=== PATIENT | female | born 1955 | race Caucasian/White ===

== ENCOUNTER 2018-04-29 06:10 | Day surgery (SDC) | payer OTHER ==
[2018-04-26 14:17] LABS: Urine Appearance CLEAR; Urine Bilirubin NEGATIVE (NEG); Urine Blood NEGATIVE (NEG); Urine Color YELLOW; Urine Glucose NEGATIVE (NEG); Urine Protein NEGATIVE (NEG); Urine Specific Gravity 1.015 (1.005-1.030); Urine Urobilinogen 0.2 mg/dL (0.2-1.0); Urine pH 5.5 (5.0-7.0)
[2018-04-26 14:19] LABS: Absolute Monocytes 0.6 K/uL (0.1-1.3); Absolute Neutrophil 3.1 K/uL (1.8-8.0); Basophils % 0.9 % (0-1.3); Eosinophils % 1.3 % (0-4.4); Hematocrit 39.2 % (36.0-45.0); Lymphocytes % 33.9 % (15.3-44.8); MCH 32.6 pg (27.0-35.0); MCV 93.7 fL (80-100); MPV 7.6 fL (7.6-11.3); Monocytes % 9.9 % (3.3-12.3); RBC Red Blood Cell Count 4.18 M/uL (3.86-4.86)
[2018-04-26 14:25] LABS: Protime INR 0.93
[2018-04-26 14:26] LABS: Urine Microscopic Reflex ORDER UMIC
[2018-04-26 15:00] LABS: Urine Bacteria <20 /HPF (<20); Urine RBC <5 /HPF (NONE SEEN)
[2018-04-26 15:01] LABS: Urine Culture Reflex Order REFLEXED
[2018-04-29] MEDS ORDERED: Ringers Lactate 1,000 ML IV ONE ×2 (06:30→09:00)
[2018-04-29] MEDS ORDERED: CEFAZOLIN/SWI 1gm 0 GM/0 ML SYR ONE (06:30)
[2018-04-29] MEDS ORDERED: PROPOFOL 200 MG/20 ML VIAL IV ONE (07:10)
[2018-04-29] MEDS ORDERED: MIDAZOLAM HCL 2 MG/2 ML INJ ONE (07:10)
[2018-04-29] MEDS ORDERED: ONDANSETRON HCL 40 MG/20 ML VIAL ONE (07:10)
[2018-04-29] MEDS ORDERED: CEFAZOLIN/SWI 1gm 1 GM/10 ML SYR ONE (07:10)
[2018-04-29] MEDS ORDERED: FENTANYL CITR 250 MCG/5 ML ONE ×2 (07:10→09:06)
[2018-04-29] MEDS ORDERED: VASOPRESSIN 20 UNIT/ML VIAL ONE (07:10)
[2018-04-29] MEDS ORDERED: ROCURONIUM 50 MG/5 ML VIAL IV ONE (07:10)
[2018-04-29] MEDS ORDERED: NA CHLORIDE 0.9% 100 ML IV ONE (07:10)
[2018-04-29] MEDS ORDERED: LIDOCAINE 1% MPF 2 ML AMPULE ONE (07:10)
[2018-04-29] MEDS ORDERED: GLYCOPYRROLATE 0.2 MG/ML SYR ONE ×2 (08:09→08:12)
[2018-04-29] MEDS: MEPERIDINE HCL 50 MG/ML AMP ONE ×3 (10:50→11:00)
[2018-04-29 10:58] VITALS: O2SAT 98
[2018-04-29] MEDS ORDERED: MORPHINE 4 MG/ML SYR ONE (11:23)
[2018-04-29] MEDS ORDERED: DIPHENHYDRAMINE 50 MG/ML VIAL ONE (11:25)
[2018-04-29] MEDS: Ringers Lactate 1,000 ML IV SCH ×2 (12:00→20:16)
[2018-04-29] MEDS ORDERED: MEPERIDINE HCL 50 MG/ML AMP IM PRN (12:20)
[2018-04-29] MEDS ORDERED: PROMETHAZINE 25 MG TABLET PO PRN (12:21)
[2018-04-29] MEDS ORDERED: PROMETHAZINE 25 MG/ML VIAL IV PRN (12:23)
[2018-04-29 13:01] VITALS: BMI 32.2
--- NOTE | 2018-04-29 13:14 | OP ---
Date of Procedure: 04/29/2018 Surgeon: Suzan Montalvo MD Impregnator And Drier: Padmini Sullivan. Preoperative Diagnosis: Posterior wall defect, stage II (rectocele, perineocele, possible apical def ect). Postoperative Diagnosis: Stage II posterior wall defect, and posterior enterocele perineal defect an d perineocele. Procedures Performed: Site-specific posterior wall repair, posterior enterocele repair, perineocele repair with perineorrhaphy. Anesthesia: General endotracheal. Estimated Blood Loss: Less than 100. Specimens: No specimens. Complications: No complications. Drains: Schaffer catheter and vaginal packing were left in place. Indications: The patient is a 63-year-old with symptomatic posterior wall defect with bulge symptoms as well as pressure. After counseling her appropriately, she was given options of observation, poss ible pessary for which fitting would be difficult due to the distal posterior wall defect and surgica l repair. After understanding the benefits, risks, and alternatives, she wanted to proceed with surg ical repair, so she was brought to the OR. Ancef 1 g was given. She was taken back to the OR. General anesthesia was given and placed in a bhupendra alison lithotomy position using Tonny stirrups. After positioning was properly checked, the pelvic exam was performed under anesthesia. An Allis clamp was used to place traction on the vaginal apex. Her POP-Q was as follows -3, -3, -8. With the Allis clamp on tension, the apex came down to -6, genital hiatus 5 cm, perineal body thin, and vaginal length was 9 cm, and then the posterior POP-Q -1 0+ 1 w ith tension and nonapplicable. There was no apical defect on exam. The defect was in the lower 2/3 of the rectovaginal septum and after the procedure, this was found to be the detachment of the rectov aginal septum from the left lateral wall. There was a small posterior enterocele on the top towards the left, which was repaired. Description Of Procedure: After the lower abdomen, vulva, vagina, and perineum were prepped and drap ed in a sterile fashion, Schaffer was placed to drain the bladder, a Deana placed in the superior aspec t to expose the apex. Three Allis clamps were placed in the midline starting at the apex down all e way to the distal part of the posterior wall. Two Allis clamps were placed on the inside of the ve stibule. The hymen was detached and this area was identified as well. With the rectal finger, the d efect was found to be in the middle to distal to third of the posterior wall. Then, once the defect was identified, dilute vasopressin was injected on the perineum as well as in t he posterior midline wall. A triangular skin incision was made on the perineum with the help of a 15 -blade. Then, the lateral aspects of the perineal body were dissected free from the epithelium and s ub-epithelium and posterior wall was entered. The posterior compartment was entered with the help of Metzenbaum scissors through this incision. With push-spread technique, windows were made. Then thi s incision was carried all the way to the top of the posterior wall 2 cm short of the apex. Then, th e rectovaginal septum was dissected away from the vaginal to the epithelium on both sides. Here, the defect was identified to be the detachment from the left side. The areas of the left attached wall were also attempted to be dissected free, although it was difficult. A tiny remnant was identified. Then once this was all raised satisfactorily and I went all the way to the apex with the suction. T here was a small posterior enterocele coming through the top left so this had to be reduced after sep arating from the rectovaginal septum. Once this was reduced with the help of 3-0 Vicryl sutures at t he top bringing the septum back and attaching it to the lateral wall and the left apex. Then I had t o repair the posterior wall. The wall was sutured. The rectovaginal septum defect was sutured toget her with the help of a running 2-0 Vicryl suture x2. Once this was done all the way down, the distal -most part of the rectovaginal septum where it was attached to the perineum was also identified and t hey were brought together with the help of the 2-0 Vicryl sutures. Then, the vaginal mucosa was trim med, taking out the scar from her episiotomy repair. Less than a half centimeter on each side was tr immed, so there was no vaginal shortening. 2-0 Vicryl was used to close the perineocele. With a fin nahum in the rectum, the other hand was used to place [id number] sutures in a buried [id number]-pr-kih ht fashion. These were held with hemostats x3 on the perineum to bring the defect together. Once th is was nicely brought together, then the glove was changed and the sutures were tied. The layer of t he port was done on top, bringing the superficial part of the transverse perineum together with inter rupted 2-0 Vicryl sutures tied in the U fashion x2. As the perineal body was thick and genital hiatu s was only or 3-4 cm, then the vaginal epithelium was closed with 2-0 Vicryl in a continuous running locked fashion to the level of the hymen and this was closed with the help of 3-0 Vicryl sutures in t he subcutaneous and subcuticular fashion. Rectal exam was performed. No evidence of any injury to t he rectum. The Schaffer was left in place. Vaginal packing was done. The patient was recovered from a nesthesia and taken to PACU in stable condition. EBL was minimal. Instrument, needle, and sponge co unts were correct at the end of the case. The patient tolerated procedure well. ANTONI/MUKESH Voice ID: [id number] Report ID: [id number]
[2018-04-29] MEDS: ACETAMINOPHEN 325 MG TABLET PO PRN ×2 (14:51→20:54)
[2018-04-30] MEDS: ACETAMINOPHEN 325 MG TABLET PO PRN (02:00)
[2018-04-30] MEDS: Ringers Lactate 1,000 ML IV SCH (03:43)
[2018-04-30 05:15] LABS: Absolute Lymphocytes (CBC) 2.1 K/uL (0.7-4.9); Absolute Monocytes 0.8 K/uL (0.1-1.3); Absolute Neutrophil 4.5 K/uL (1.8-8.0); Basophils % 0.7 % (0-1.3); Hematocrit 35.5 % (36.0-45.0); Lymphocytes % 27.2 % (15.3-44.8); MCH 32.5 pg (27.0-35.0); MCV 91.8 fL (80-100); MPV 7.3 fL (7.6-11.3); Monocytes % 10.3 % (3.3-12.3); RBC Red Blood Cell Count 3.86 M/uL (3.86-4.86)
[2018-04-30 08:33] VITALS: BP 126/76; TEMP 97.8
== END 2018-04-30 08:45 | disposition home or self-care (01) ==
LOC: OR 06:10 → 2ND-WC 11:07 → OR 04-30 08:45
PROVIDERS: ATTEND Obstetrics & Gynecology
PROC: 0WQNXZZ Repair Female Perineum, External Approach (ICD-10-PCS; 2018-04-29)
PROC: 0UQF0ZZ Repair Cul-de-sac, Open Approach (ICD-10-PCS; 2018-04-29)
PROC: 0JQC0ZZ Repair Pelvic Region Subcutaneous Tissue and Fascia, Open Approach (ICD-10-PCS; principal; 2018-04-29 07:30)
DX: N99.3 Prolapse of vaginal vault after hysterectomy (principal); N81.81 Perineocele; I10 Essential (primary) hypertension; G47.33 Obstructive sleep apnea (adult) (pediatric); J45.909 Unspecified asthma, uncomplicated; K21.9 Gastro-esophageal reflux disease without esophagitis; F41.9 Anxiety disorder, unspecified; Z88.0 Allergy status to penicillin; Z88.2 Allergy status to sulfonamides; Z82.49 Family history of ischemic heart disease and other diseases of the circulatory system; Z82.3 Family history of stroke
CPT/HCPCS: 36415; 81003; 81015; 85025; 85610; 85730; 86850; 86900; 86901; 87077; 87086; 87088; 87186; J0690; J2001; J2175; J2250; J2405

== ENCOUNTER 2019-04-01 14:51 | Emergency (ER) | payer OTHER ==
[2019-04-01] MEDS ORDERED: LIDOCAINE 1% MPF 5 ML VIAL ONE (16:10)
[2019-04-01] MEDS ORDERED: BUPIVACAINE 0.5% PF 10 ML VIAL ONE (16:10)
--- NOTE | 2019-04-01 16:31 | ER ---
Nurse's Notes [facility] Name: Herlinda Cobos Age: 64 yrs Sex: Female : 1955 Arrival Date: 04/01/2019 Time: 14:55 Bed 24 Private MD: Diagnosis: Laceration without foreign body of thumb without damage to nail-left Presentation: 04/01 15:24 Presenting complaint: Patient states: She was cutting tomatoes with a Mandolin and she aj1 accidentally cut her thumb. Laceration noted to thumb, that is not currently bleeding. Transition of care: patient was not received from another setting of care. Onset of symptoms was April 01, 2019. Risk Assessment: Do you want to hurt yourself or someone else? Patient reports no desire to harm self or others. Initial Sepsis Screen: Does the patient meet any 2 criteria? No. Patient's initial sepsis screen is negative. Does the patient have a suspected source of infection? No. Patient's initial sepsis screen is negative. Care prior to arrival: None. 15:24 Method Of Arrival: Ambulatory [facility] 15:24 Acuity: JORGE 4 aj1 Triage Assessment: 15:27 General: Appears in no apparent distress. comfortable, Behavior is calm, cooperative, aj1 appropriate for age. Pain: Denies pain. Neuro: Level of Consciousness is awake, alert, obeys commands. Cardiovascular: Patient's skin is warm and dry. Musculoskeletal: Circulation, motion, and sensation intact. Injury Description: Laceration. Historical: - Allergies: 15:27 PENICILLINS; aj1 15:27 lactose (bulk); aj1 - Home Meds: 15:27 Prozac Oral [Active]; carvedilol oral oral [Active]; amlodipine oral [Active]; aj1 atorvastatin oral oral [Active]; topiramate oral oral [Active]; Advair Diskus Inhl [Active]; - PMHx: 15:27 Asthma; Hyperlipidemia; Hypertension; aj1 - PSHx: 15:27 Tonsillectomy; Hysterectomy; tummy tuck; aj1 - Immunization history:: Flu vaccine is up to date. - Social history:: Smoking status: Patient/guardian denies using tobacco. - Ebola Screening: : Patient denies travel to an Ebola-affected area in the 21 days before illness onset. Screenin:07 Abuse screen: Denies threats or abuse. Denies injuries from another. Nutritional mg2 screening: No deficits noted. Tuberculosis screening: No symptoms or risk factors identified. Fall Risk None identified. Assessment: 16:06 General: Appears in no apparent distress. comfortable, Behavior is calm, cooperative. mg2 Pain: Complains of pain in left thumb Pain does not radiate. Neuro: Level of Consciousness is awake, alert, obeys commands, Oriented to person, place, time, situation. Cardiovascular: Capillary refill < 3 seconds Patient's skin is warm and dry. Respiratory: Airway is patent Respiratory effort is even, unlabored, Respiratory pattern is regular, symmetrical. GI: No signs and/or symptoms were reported involving the gastrointestinal system. : No signs and/or symptoms were reported regarding the genitourinary system. EENT: No signs and/or symptoms were reported regarding the EENT system. Derm: Wound noted left thumb. Injury Description: Laceration sustained to left thumb is clean, 0.5 to 2.5 cm long, not bleeding, was sustained 2-4 hours ago. no active bleeding noted at this time. Vital Signs: 15:27 BP 126 / 79; Pulse 77; Resp 18; Temp 98.6; Pulse Ox 99% on R/A; Weight 84.37 kg (R); aj1 Height 5 ft. 4 in. (162.56 cm) (R); 16:55 BP 120 / 78; Pulse 80; Resp 18; Temp 98; Pulse Ox 100% on R/A; Pain 0/10; mg2 15:27 Body Mass Index 31.93 (84.37 kg, 162.56 cm) aj1 ED Course: 14:55 Patient arrived in ED. rg4 15:18 Nolan Donovan, RN is Primary Nurse. mg2 15:25 Triage completed. aj1 15:27 Zheng Rowell PA is PHCP. cp 15:27 Andrea Jean MD is Attending Physician. cp 15:27 Arm band placed on Patient placed in an exam room. aj1 16:07 Patient has correct armband on for positive identification. Door closed. mg2 16:53 Assist provider with laceration repair on left thumb that was 2.5 cm. or less using 3 mg2 stitches made under local anesthesia. Set up tray. Performed by Zheng GARRIDO Dressed with 4X4s, Neosporin, Patient tolerated well. 16:54 Patient did not have IV access during this emergency room visit. mg2 Administered Medications: 16:03 Drug: Marcaine (0.5 %) 5 ml {Note: applied by the provider.} Volume: 10 ml; Route: mg2 Infiltration; 16:56 Follow up: Response: No adverse reaction; Marked relief of symptoms mg2 16:05 Drug: Lidocaine (1 %) 5 mg {Note: given by the provider.} Route: Infiltration; mg2 16:56 Follow up: Response: No adverse reaction; Marked relief of symptoms mg2 Outcome: 16:30 Discharge ordered by . sabrina 16:56 Discharged to home ambulatory, with family. mg2 16:56 Condition: good 16:56 Discharge instructions given to patient, family, Instructed on discharge instructions, follow up and referral plans. wound care, Demonstrated understanding of instructions, follow-up care, wound care. 16:57 Patient left the ED. mg2 Signatures: Stephanie Lewis RN RN aj1 Zheng Rowell PA PA cp Garcia, Rubi rg4 Nolan Donovan RN RN mg2 Corrections: (The following items were deleted from the chart) 16:54 16:06 Pain: Complains of pain in right thumb Pain does not radiate. mg2 mg2 16:54 16:06 Derm: Wound noted right thumb mg2 mg2 16:54 16:06 Injury Description: Laceration sustained to right thumb is clean, 0.5 to 2.5 cm mg2 long, not bleeding, was sustained 2-4 hours ago. no active bleeding noted at this time. mg2 16:55 16:53 Assist provider with laceration repair mg2 mg2
--- NOTE | 2019-04-01 16:31 | EDPHYS ---
Physician Documentation [facility] Name: Herlinda Cobos Age: 64 yrs Sex: Female : 1955 Arrival Date: 04/01/2019 Time: 14:55 Bed 24 Private MD: ED Physician Andrea Jean HPI: 04/01 15:45 This 64 yrs old Female presents to ER via Ambulatory with complaints of cp Finger Injury. 15:45 The patient or guardian reports a laceration, clean. The complaints affect the distal cp phalanx of left thumb. 15:45 Context: The problem was sustained at home, resulted from using Mandolin while cooking. cp Onset: The symptoms/episode began/occurred just prior to arrival. Associated signs and symptoms: Pertinent negatives: cyanosis distally, decreased sensation distally. Historical: - Allergies: 15:27 PENICILLINS; aj1 15:27 lactose (bulk); aj1 - Home Meds: 15:27 Prozac Oral [Active]; carvedilol oral oral [Active]; amlodipine oral [Active]; aj1 atorvastatin oral oral [Active]; topiramate oral oral [Active]; Advair Diskus Inhl [Active]; - PMHx: 15:27 Asthma; Hyperlipidemia; Hypertension; aj1 - PSHx: 15:27 Tonsillectomy; Hysterectomy; tummy tuck; aj1 - Immunization history:: Flu vaccine is up to date. - Social history:: Smoking status: Patient/guardian denies using tobacco. - Ebola Screening: : Patient denies travel to an Ebola-affected area in the 21 days before illness onset. ROS: 15:50 Skin: Positive for laceration(s), of the distal phalanx of left thumb. cp Exam: 16:00 Constitutional: The patient appears in no acute distress, alert, awake, well developed, cp well nourished. 16:00 Head/Face: Normocephalic, atraumatic. cp 16:00 Eyes: Periorbital structures: appear normal, Conjunctiva: normal, no exudate, no injection, Lids and lashes: appear normal, bilaterally. 16:00 ENT: External ear(s): are unremarkable, Nose: is normal, Mouth: is normal. 16:00 Chest/axilla: Inspection: normal. 16:00 Cardiovascular: Rate: normal. 16:00 Respiratory: the patient does not display signs of respiratory distress, Respirations: normal. 16:00 Musculoskeletal/extremity: Sensation intact. Tendon exam: specific tendon testing normal through active and passive range of motion 16:00 Skin: injury, laceration(s), the wound is approximately 2 cm(s), of the distal phalanx left thumb, that can be described as clean, linear, with mild bleeding. Vital Signs: 15:27 BP 126 / 79; Pulse 77; Resp 18; Temp 98.6; Pulse Ox 99% on R/A; Weight 84.37 kg (R); aj1 Height 5 ft. 4 in. (162.56 cm) (R); 16:55 BP 120 / 78; Pulse 80; Resp 18; Temp 98; Pulse Ox 100% on R/A; Pain 0/10; mg2 15:27 Body Mass Index 31.93 (84.37 kg, 162.56 cm) aj1 Laceration: 16:27 Wound Repair of 2cm ( 0.8in ) subcutaneous laceration to distal phalanx left thumb. cp Linear shaped.. Distal neuro/vascular/tendon intact. Anesthesia: Digital block administered with 3 mls of Lido/Marcaine. Wound prep: Moderate cleansing by me, Wound irrigation by me. Skin closed with 3 5-0 Prolene using interrupted sutures and sterile technique. Dressed with Bacitracin, tube gauze. Patient tolerated well. MDM: 15:40 Patient medically screened. 16:30 Differential diagnosis: open fracture, simple laceration. cp 16:30 Data reviewed: vital signs, nurses notes. Counseling: I had a detailed discussion with cp the patient and/or guardian regarding: the historical points, exam findings, and any diagnostic results supporting the discharge/admit diagnosis, to return to the emergency department if symptoms worsen or persist or if there are any questions or concerns that arise at home. Response to treatment: the patient's symptoms have markedly improved after treatment, and as a result, I will discharge patient. Refusal of service: The patient/guardian displays adequate decision making capability and despite a detailed discussion of alternatives, benefits, risks, and consequences refuses: all X-rays. 04/01 15:43 Order name: Dressing - Wound; Complete Time: 16:02 cp 04/01 15:43 Order name: Gloves, Sterile; Complete Time: 16:02 cp 04/01 15:43 Order name: Setup Suture Tray; Complete Time: 16:02 cp Administered Medications: 16:03 Drug: Marcaine (0.5 %) 5 ml {Note: applied by the provider.} Volume: 10 ml; Route: mg2 Infiltration; 16:56 Follow up: Response: No adverse reaction; Marked relief of symptoms mg2 16:05 Drug: Lidocaine (1 %) 5 mg {Note: given by the provider.} Route: Infiltration; mg2 16:56 Follow up: Response: No adverse reaction; Marked relief of symptoms mg2 Disposition: 17:00 Chart complete. cp Disposition: 04/01/19 16:30 Discharged to Home. Impression: Laceration without foreign body of thumb without damage to nail - left. - Condition is Stable. - Discharge Instructions: Laceration Care, Adult. - Medication Reconciliation Form, Thank You Letter, Antibiotic Education, Prescription Opioid Use form. - Follow up: Private Physician; When: 7 - 10 days; Reason: Staple/Suture removal. - Problem is new. - Symptoms have improved. Addendum: 04/02/2019 18:17 Co-signature as Attending Physician, Andrea Jean MD. g s Signatures: Stephanie Lewis RN RN aj1 Zheng Rowell PA PA cp Andrea Jean MD MD gs Nolan Donovan RN RN mg2 Corrections: (The following items were deleted from the chart) 04/01 16:57 16:30 04/01/2019 16:30 Discharged to Home. Impression: Laceration without foreign body mg2 of thumb without damage to nail - left. Condition is Stable. Forms are Medication Reconciliation Form, Thank You Letter, Antibiotic Education, Prescription Opioid Use. Follow up: Private Physician; When: 7 - 10 days; Reason: Staple/Suture removal. Problem is new. Symptoms have improved. cp
[2019-04-01 18:03] VITALS: BP 120/78; TEMP 98; O2SAT 100
== END 2019-04-01 16:57 | disposition home or self-care (01) ==
LOC: ER 14:51
PROC: 0JQK0ZZ Repair Left Hand Subcutaneous Tissue and Fascia, Open Approach (ICD-10-PCS; principal; 2019-04-01)
DX: S61.012A Laceration without foreign body of left thumb without damage to nail, initial encounter (principal); W45.8XXA Other foreign body or object entering through skin, initial encounter; Y93.G3 Activity, cooking and baking; Y92.000 Kitchen of unspecified non-institutional (private) residence as the place of occurrence of the external cause; Z88.0 Allergy status to penicillin; Z91.011 Allergy to milk products; I10 Essential (primary) hypertension; E78.5 Hyperlipidemia, unspecified; J45.909 Unspecified asthma, uncomplicated
CPT/HCPCS: 99283

== ENCOUNTER 2020-06-14 20:33 | Emergency (ER) | payer OTHER ==
[2020-06-14 22:08] LABS: Absolute Lymphocytes (CBC) 2.1 K/uL (0.7-4.9); Basophils % 0.5 % (0-1.3); Hematocrit 40.4 % (36.0-45.0); Lymphocytes % 21.3 % (15.3-44.8); MPV 7.7 fL (7.6-11.3); RBC Red Blood Cell Count 4.38 M/uL (3.86-4.86)
[2020-06-14 22:13] LABS: Protime INR 0.94
[2020-06-14 22:15] LABS: ALT/SGPT 30 U/L (12-78); AST/SGOT 15 U/L (15-37); Albumin 4.2 g/dL (3.4-5.0); Alkaline Phosphatase 84 U/L (45-117); BUN Blood Urea Nitrogen 19 mg/dL (7-18); Bicarbonate 28 mmol/L (21-32); Bilirubin Direct 0.1 mg/dL (0-0.2); Bilirubin Total 0.4 mg/dL (0.2-1.0); Glucose Level 105 mg/dL (74-106); Magnesium 2.1 mg/dL (1.8-2.4); NT PRO-BNP 119 pg/mL (<125); Protein, Total 7.7 g/dL (6.4-8.2); Sodium Level 141 mmol/L (136-145); Troponin (Emerg Dept Use Only) < 0.02 ng/mL (0.0-0.045)
--- NOTE | 2020-06-15 00:20 | ER ---
Nurse's Notes [facility] Name: Herlinda Cobos Age: 65 yrs Sex: Female : 1955 Arrival Date: 06/14/2020 Time: 20:39 Bed 14 Private MD: Diagnosis: Chest pain, unspecified Presentation: 06/14 20:59 Chief complaint: Patient states: CP since 1500 today. + SOB, slight cough. No known ll1 fever. BP 157 systolic at home. Sent by Dr. Whitfield for further checkup. Coronavirus screen: Client denies travel out of the [place] in the last 14 days. cough unrelated to allergies, difficulty breathing, fatigue, Client presents with at least one sign or symptom that may indicate coronavirus-19. Standard/surgical mask placed on the client. Ebola Screen: Patient denies travel to an Ebola-affected area in the 21 days before illness onset. Initial Sepsis Screen: Does the patient meet any 2 criteria? No. Patient's initial sepsis screen is negative. Risk Assessment: Do you want to hurt yourself or someone else? Patient reports no desire to harm self or others. Onset of symptoms was June 14, 2020. 20:59 Method Of Arrival: Ambulatory ll1 20:59 Acuity: JORGE 3 ll1 21:35 Initial Sepsis Screen: Does the patient have a suspected source of infection? No. wh Patient's initial sepsis screen is negative. Historical: - Allergies: 21:03 lactose (bulk); ll1 21:03 PENICILLINS; ll1 - PMHx: 21:03 Hyperlipidemia; Hypertension; Asthma; ll1 - PSHx: 21:03 Hysterectomy; Tonsillectomy; tummy tuck; breast implants; ll1 - Immunization history:: Flu vaccine is up to date. - Social history:: Smoking status: Patient denies any tobacco usage or history of. Screenin:30 Abuse screen: Denies threats or abuse. Denies injuries from another. Nutritional wh screening: No deficits noted. Tuberculosis screening: No symptoms or risk factors identified. Fall Risk None identified. Assessment: 21:20 General: Appears in no apparent distress. Behavior is calm, cooperative, appropriate wh for age. Pain: Complains of pain in chest Pain does not radiate. Pain currently is 3 out of 10 on a pain scale. Quality of pain is described as dull, Pain began 4 hours ago. Is episodic. Neuro: Level of Consciousness is awake, alert, obeys commands, Oriented to person, place, time, situation, Appropriate for age. Cardiovascular: Heart tones S1 S2 Rhythm is regular. Respiratory: Reports shortness of breath Airway is patent Respiratory effort is even, unlabored, Respiratory pattern is regular, symmetrical, Breath sounds are clear bilaterally. GI: Abdomen is flat, non-distended. : No signs and/or symptoms were reported regarding the genitourinary system. EENT: No signs and/or symptoms were reported regarding the EENT system. Derm: Skin is intact, is healthy with good turgor, Skin is pink, warm \T\ dry. normal. Musculoskeletal: Circulation, motion, and sensation intact. 22:30 Reassessment: Patient appears in no apparent distress at this time. No changes from previously documented assessment. Patient and/or family updated on plan of care and expected duration. Pain level reassessed. Patient is alert, oriented x 3, equal unlabored respirations, skin warm/dry/pink. 23:50 Reassessment: Patient appears in no apparent distress at this time. Patient and/or family updated on plan of care and expected duration. Pain level reassessed. Patient is alert, oriented x 3, equal unlabored respirations, skin warm/dry/pink. Vital Signs: 20:59 BP 141 / 105; Pulse 83; Resp 18; Temp 99.2; Pulse Ox 98% ; Weight 86.64 kg; Height 5 ll1 ft. 4 in. (162.56 cm); Pain 4/10; 22:30 BP 126 / 96; Pulse 79; Resp 18; Pulse Ox 98% on R/A; wh 06/15 00:00 BP 130 / 76; Pulse 79; Resp 18; Pulse Ox 99% ; 06/14 20:59 Body Mass Index 32.78 (86.64 kg, 162.56 cm) ll1 ED Course: 06/14 20:39 Patient arrived in ED. cf2 21:02 Triage completed. ll1 21:03 Arm band placed on. ll1 21:10 Iraj Gordillo PA is PHCP. jr8 21:10 Gentry Bliss MD is Attending Physician. jr8 21:35 Patient has correct armband on for positive identification. Placed in gown. Bed in low wh position. Call light in reach. Side rails up X 1. residential monitor on. Pulse ox on. NIBP on. 21:39 Lissette Han is Primary Nurse. 21:50 Inserted saline lock: 20 gauge in right antecubital area, using aseptic technique. Blood collected. Patient maintains SpO2 saturation greater than 95% on room air. 22:01 XRAY Chest (1 view) In Process Unspecified. EDPR 06/15 00:19 Chepe De La Garza MD is Referral Physician. jr8 00:19 Toñito Whitfield MD is Referral Physician. [facility] 00:33 No provider procedures requiring assistance completed. IV discontinued, intact, bleeding controlled, No redness/swelling at site. Administered Medications: No medications were administered Outcome: 00:20 Discharge ordered by . 8 00:33 Discharged to home ambulatory. 00:33 Condition: stable 00:33 Discharge instructions given to patient, Instructed on discharge instructions, follow up and referral plans. POC Demonstrated understanding of instructions, follow-up care, POC 00:34 Patient left the ED. Addendum: 06/19/2020 07:43 Addendum: COVID-19 Result: Negative result given to RN to notify pt. Notified pt of i w negative COVID 19 swab results. Pt advised that even with a negative test result they should remain in isolation until symptom free for 3 days without medication. Pt also advised to return to the ED for worsening symptoms. Signatures: Dispatcher [employer] EDPR Em London RN RN Iraj Gordillo PA PA jr8 Lissette Han Mic Roberson 2 Charles Zavaleta RN RN ll1 Corrections: (The following items were deleted from the chart) 06/15 00:05 06/14 21:20 Respiratory: Airway is patent Respiratory effort is even, unlabored, Respiratory pattern is regular, symmetrical, Breath sounds are clear bilaterally.
--- NOTE | 2020-06-15 00:20 | EDPHYS ---
Physician Documentation [facility] Name: Herlinda Cobos Age: 65 yrs Sex: Female : 1955 Arrival Date: 06/14/2020 Time: 20:39 Bed 14 Private MD: ED Physician Gentry Bliss HPI: 06/14 22:05 This 65 yrs old Female presents to ER via Ambulatory with complaints of Chest jr8 Pain, Breathing Difficulty. 22:05 The patient or guardian reports chest pain that is located primarily in the substernal jr8 area. Onset: acutely, today. The pain radiates to jaw. Associated signs and symptoms: Pertinent positives: shortness of breath. The chest pain is described as a pressure, squeezing. Duration: The patient or guardian reports a single episode, that lasted 5 hour(s). Modifying factors: The symptoms are alleviated by BP meds. the symptoms are aggravated by nothing. Severity of pain: At its worst the pain was moderate in the emergency department the pain has resolved. The patient has not experienced similar symptoms in the past. The patient has not recently seen a physician. Historical: - Allergies: 21:03 lactose (bulk); ll1 21:03 PENICILLINS; ll1 - PMHx: 21:03 Hyperlipidemia; Hypertension; Asthma; ll1 - PSHx: 21:03 Hysterectomy; Tonsillectomy; tummy tuck; breast implants; ll1 - Immunization history:: Flu vaccine is up to date. - Social history:: Smoking status: Patient denies any tobacco usage or history of. ROS: 06/15 00:18 Eyes: Negative for injury, pain, redness, and discharge, ENT: Negative for injury, jr8 pain, and discharge, Neck: Negative for injury, pain, and swelling, Abdomen/GI: Negative for abdominal pain, nausea, vomiting, diarrhea, and constipation, Back: Negative for injury and pain, MS/Extremity: Negative for injury and deformity, Skin: Negative for injury, rash, and discoloration, Neuro: Negative for headache, weakness, numbness, tingling, and seizure. Cardiovascular: Positive for chest pain, Negative for edema, orthopnea, palpitations, paroxysmal nocturnal dyspnea. Respiratory: Positive for shortness of breath. Exam: 00:18 Eyes: Pupils equal round and reactive to light, extra-ocular motions intact. Lids and jr8 lashes normal. Conjunctiva and sclera are non-icteric and not injected. Cornea within normal limits. Periorbital areas with no swelling, redness, or edema. ENT: Nares patent. No nasal discharge, no septal abnormalities noted. Tympanic membranes are normal and external auditory canals are clear. Oropharynx with no redness, swelling, or masses, exudates, or evidence of obstruction, uvula midline. Mucous membranes moist. Neck: Trachea midline, no thyromegaly or masses palpated, and no cervical lymphadenopathy. Supple, full range of motion without nuchal rigidity, or vertebral point tenderness. No Meningismus. Chest/axilla: Normal chest wall appearance and motion. Nontender with no deformity. No lesions are appreciated. Cardiovascular: Regular rate and rhythm with a normal S1 and S2. No gallops, murmurs, or rubs. Normal PMI, no JVD. No pulse deficits. Respiratory: Lungs have equal breath sounds bilaterally, clear to auscultation and percussion. No rales, rhonchi or wheezes noted. No increased work of breathing, no retractions or nasal flaring. Abdomen/GI: Soft, non-tender, with normal bowel sounds. No distension or tympany. No guarding or rebound. No evidence of tenderness throughout. Back: No spinal tenderness. No costovertebral tenderness. Full range of motion. Skin: Warm, dry with normal turgor. Normal color with no rashes, no lesions, and no evidence of cellulitis. MS/ Extremity: Pulses equal, no cyanosis. Neurovascular intact. Full, normal range of motion. Neuro: Awake and alert, GCS 15, oriented to person, place, time, and situation. Cranial nerves II-XII grossly intact. Motor strength 5/5 in all extremities. Sensory grossly intact. Cerebellar exam normal. Normal gait. Vital Signs: 06/14 20:59 BP 141 / 105; Pulse 83; Resp 18; Temp 99.2; Pulse Ox 98% ; Weight 86.64 kg; Height 5 ll1 ft. 4 in. (162.56 cm); Pain 4/10; 22:30 BP 126 / 96; Pulse 79; Resp 18; Pulse Ox 98% on R/A; wh 06/15 00:00 BP 130 / 76; Pulse 79; Resp 18; Pulse Ox 99% ; wh 06/14 20:59 Body Mass Index 32.78 (86.64 kg, 162.56 cm) ll1 MDM: 06/14 21:10 Patient medically screened. 06/15 00:18 The patient was not given aspirin in the Emergency Department. Patient reports taking [facility] aspirin within the past 24 hours. Data reviewed: vital signs, nurses notes. Data interpreted: Pulse oximetry: on room air is 99 %. Interpretation: normal. Counseling: I had a detailed discussion with the patient and/or guardian regarding: the historical points, exam findings, and any diagnostic results supporting the discharge/admit diagnosis, lab results, radiology results, the need for outpatient follow up, a chicken and fish cleaner, a family practitioner, to return to the emergency department if symptoms worsen or persist or if there are any questions or concerns that arise at home. ED course: Patient still without CP. X 2 troponins both negative. VS stable. Will d/c home to f/u with Dr. Whitfield as patient requested to go home and did not want to be observed overnight . 06/14 21:11 Order name: Basic Metabolic Panel; Complete Time: 22:45 06/14 21:11 Order name: CBC with Diff; Complete Time: 22:45 [facility] 06/14 21:11 Order name: LFT's; Complete Time: 22:45 06/14 21:11 Order name: Magnesium; Complete Time: 22:45 06/14 21:11 Order name: NT PRO-BNP; Complete Time: 22:45 [facility] 06/14 21:11 Order name: PT-INR; Complete Time: 22:45 [facility] 06/14 21:11 Order name: Troponin (emerg Dept Use Only); Complete Time: 22:45 06/14 21:11 Order name: XRAY Chest (1 view) [facility] 06/14 21:11 Order name: EKG; Complete Time: 21:11 [facility] 06/14 21:11 Order name: Cardiac monitoring; Complete Time: 21:39 06/14 21:11 Order name: EKG - Nurse/Tech; Complete Time: 21:39 06/14 21:11 Order name: IV Saline Lock; Complete Time: 21:39 [facility] 06/14 21:11 Order name: COVID-19 [facility] 06/14 23:24 Order name: Troponin (emerg Dept Use Only); Complete Time: 00:18 jr8 06/14 21:11 Order name: Labs collected and sent; Complete Time: 21:39 jr8 06/14 21:11 Order name: O2 Per Protocol; Complete Time: :39 jr8 06/14 21:11 Order name: O2 Sat Monitoring; Complete Time: 21:39 jr8 Administered Medications: No medications were administered Disposition: 07:07 Co-signature as Attending Physician, Gentry Bliss MD I agree with the assessment and rust plan of care. Disposition: 06/15/20 00:20 Discharged to Home. Impression: Chest pain, unspecified. - Condition is Stable. - Discharge Instructions: Nonspecific Chest Pain, Chest Pain Observation. - Medication Reconciliation Form, Thank You Letter, Antibiotic Education, Prescription Opioid Use form. - Follow up: Chepe De La Garza MD; When: 1 - 2 days; Reason: Recheck today's complaints, Continuance of care, Re-evaluation by your physician. Follow up: Toñito Whitfield MD; When: 1 - 2 days; Reason: Recheck today's complaints, Continuance of care, Re-evaluation by your physician. - Problem is new. - Symptoms have improved. Signatures: Dispatcher [employer] EDMS Iraj Gordillo PA PA jr8 Lissette Han Terrence, MD MD tw4 Charles Zavaleta RN RN ll1 Corrections: (The following items were deleted from the chart) 00:34 00:20 06/15/2020 00:20 Discharged to Home. Impression: Chest pain, unspecified. wh Condition is Stable. Forms are Medication Reconciliation Form, Thank You Letter, Antibiotic Education, Prescription Opioid Use. Follow up: Chepe De La Garza; When: 1 - 2 days; Reason: Recheck today's complaints, Continuance of care, Re-evaluation by your physician. Follow up: Toñito Whitfield; When: 1 - 2 days; Reason: Recheck today's complaints, Continuance of care, Re-evaluation by your physician. Problem is new. Symptoms have improved. jr8
[2020-06-15 01:12] VITALS: TEMP 99.2
[2020-06-15 01:14] VITALS: BP 130/76; O2SAT 99
--- NOTE | 2020-06-15 07:52 | RAD REPORT ---
EXAM DESCRIPTION: RAD - Chest Single View - 06/14/2020 10:23 pm CLINICAL HISTORY: DYSPNEA, chest pain COMPARISON: None TECHNIQUE: AP portable chest image was obtained 06/14/2020 10:23 pm . FINDINGS: Lungs are clear. Heart and vasculature are normal. No measurable pleural effusion and no p neumothorax. No acute bony abnormality seen. No acute aortic findings suspected. IMPRESSION: No acute cardiopulmonary process.
--- NOTE | 2020-06-15 11:39 | EKG ---
Test Date: 2020-06-14 Test Time: 21:26:57 Dip Painter: MEASUREMENT RESULTS: Intervals: Rate: 77 [place]: 152 QRSD: 76 QT: 382 QTc: 432 [place]: P: 43 [place]: 152 QRS: 70 T: 82 INTERPRETIVE STATEMENTS: Normal sinus rhythm Normal ECG Compared to ECG 05/11/2012 14:27:54 No significant changes Electronically Signed On 06-15-20 11:37:20 CDT by Chepe De La Garza
== END 2020-06-15 00:34 | disposition home or self-care (01) ==
LOC: ER 20:33
DX: R07.9 Chest pain, unspecified (principal); Z20.828 Contact with and (suspected) exposure to other viral communicable diseases; I10 Essential (primary) hypertension; Z98.82 Breast implant status; Z88.0 Allergy status to penicillin; Z91.011 Allergy to milk products
CPT/HCPCS: 93005; 85025; 80048; 36415; 83735; 85610; 80076; 84484 ×2; 83880; 71045; 99285; U0002

== ENCOUNTER 2022-04-10 15:15 | Emergency (ER) | payer OTHER ==
[2022-04-10 16:28] LABS: Absolute Lymphocytes (CBC) 1.2 K/uL (0.7-4.9); Hematocrit 38.9 % (36.0-45.0); Lymphocytes % 26.2 % (15.3-44.8); MCV 93.1 fL (80-100); MPV 6.6 fL (7.6-11.3); Protime INR 0.94; RBC Red Blood Cell Count 4.18 M/uL (3.86-4.86)
--- NOTE | 2022-04-10 16:38 | RAD REPORT ---
EXAM DESCRIPTION: RAD - Chest Single View - 04/10/2022 4:27 pm CLINICAL HISTORY: hypotension COMPARISON: Portable 06/14/2020 TECHNIQUE: AP portable chest image was obtained 04/10/2022 4:27 pm . FINDINGS: Portable exam is under penetrated. This film technique along with prominent breast tissue increases density over each lung field. A true lung parenchymal process is not suspected. Failure and volume overload are not suspected. Heart and vasculature are normal. No measurable pleural effusion and no pneumothorax. No acute bone finding. Thoracolumbar scoliosis again noted. No acute aortic findings suspected. IMPRESSION: No acute cardiopulmonary process. No significant change from comparison study.
[2022-04-10] MEDS ORDERED: NA CHLORIDE 0.9% 1,000 ML ONE (16:45)
[2022-04-10 16:46] LABS: Albumin 4.1 g/dL (3.4-5.0); Bilirubin Direct 0.2 mg/dL (0-0.2); Bilirubin Total 0.6 mg/dL (0.2-1.0); Magnesium 2.5 mg/dL (1.8-2.4); Potassium 3.8 mmol/L (3.5-5.1); Protein, Total 6.7 g/dL (6.4-8.2); Troponin High Sensitivity 3.8 pg/mL (<58.9)
[2022-04-10 17:58] LABS: Urine Blood Negative (Negative); Urine Glucose Negative (Negative); Urine Protein Negative (Negative); Urine Specific Gravity 1.015 (1.005-1.030)
[2022-04-10 18:22] LABS: Urine Bacteria <20 /HPF (<20); Urine RBC <5 /HPF (None Seen)
--- NOTE | 2022-04-10 19:01 | EDPHYS ---
Physician Documentation [facility] Name: Herlinda Cobos Age: 67 yrs Sex: Female : 1955 Arrival Date: 04/10/2022 Time: 15:18 Bed 15 Private MD: Toñito Whitfield C ED Physician Zheng Rodgers HPI: 04/10 16:00 This 67 yrs old Female presents to ER via Wheelchair with complaints of Blood Pressure cp Problem. 16:00 The patient presents with dizziness, lightheadedness. Onset: The symptoms/episode cp began/occurred today. 16:00 Context: Context: Patient reports started having upset stomach after consuming smoothie cp from [employer]. Had i episode of diarrhea. Hope dizzy and lightheaded. checked blood pressure and it measured low. 16:00 Patient's baseline: Neuro: alert and fully oriented, Motor: no deficits, Ambulation: cp walks without assistance, Speech: normal. Historical: - Allergies: 15:32 PENICILLINS; bm7 15:32 Sulfa (Sulfonamide Antibiotics); bm7 - Home Meds: 15:32 Advair Diskus Inhl [Active]; amlodipine oral [Active]; atorvastatin Oral [Active]; bm7 Prozac Oral [Active]; carvedilol Oral [Active]; topiramate Oral [Active]; - PMHx: 15:32 Asthma; Hypertension; Hyperlipidemia; bm7 - Immunization history:: Adult Immunizations up to date. - Social history:: Smoking status: Patient reports the use of cigarette tobacco products, Patient/guardian denies using tobacco products. ROS: 16:05 Constitutional: Negative for body aches, chills, fever, poor PO intake. cp 16:05 Eyes: Negative for injury, pain, redness, and discharge. cp 16:05 ENT: Negative for drainage from ear(s), ear pain, sore throat, difficulty swallowing, difficulty handling secretions. 16:05 Cardiovascular: Negative for chest pain, edema, palpitations. 16:05 Respiratory: Negative for cough, shortness of breath, wheezing. 16:05 Abdomen/GI: Positive for 1 episode of diarrhea, Negative for abdominal pain, vomiting, constipation, abdominal cramps, abdominal distension, black/tarry stool, rectal bleeding. 16:05 : Negative for urinary symptoms, vaginal bleeding. 16:05 Neuro: Positive for dizziness, lightheaded, Negative for altered mental status, headache, weakness. 16:05 All other systems are negative. Exam: 16:10 Constitutional: The patient appears in no acute distress, alert, awake, comfortable, cp non-diaphoretic, non-toxic, well developed, well nourished. 16:10 Head/Face: Normocephalic, atraumatic. cp 16:10 Eyes: Periorbital structures: appear normal, Pupils: equal, round, and reactive to light and accomodation, Extraocular movements: intact throughout, Conjunctiva: normal, no exudate, no injection, Sclera: no appreciated abnormality, Lids and lashes: appear normal, bilaterally. 16:10 ENT: External ear(s): are unremarkable, Nose: is normal, Mouth: Lips: moist, Oral mucosa: pink and intact, moist, Posterior pharynx: Airway: no evidence of obstruction, patent, erythema, is not appreciated, exudate, is not appreciated. 16:10 Neck: ROM/movement: is normal, is supple, without pain, no range of motions limitations, no nuchal rigidity. 16:10 Chest/axilla: Inspection: normal. 16:10 Cardiovascular: Rate: normal, Rhythm: regular, Edema: is not appreciated, JVD: is not appreciated. 16:10 Respiratory: the patient does not display signs of respiratory distress, Respirations: normal, no use of accessory muscles, no retractions, labored breathing, is not present, Breath sounds: are clear throughout, no decreased breath sounds, no stridor, no wheezing. 16:10 Abdomen/GI: Inspection: abdomen appears normal, Bowel sounds: active, all quadrants, Palpation: abdomen is soft and non-tender, in all quadrants. 16:10 Back: pain, is absent, ROM is normal. 16:10 Skin: cellulitis, is not appreciated, no rash present. 16:10 Neuro: Orientation: to person, place \\T\\ time. Mentation: is normal, Cerebellar function: is grossly normal, Motor: moves all fours, strength is normal, Sensation: is normal. 16:55 ECG was reviewed by the Attending Physician. cp Vital Signs: 15:29 BP 90 / 60; Pulse 70; Resp 16; Temp 97.7(TE); Pulse Ox 100% on R/A; Weight 78.47 kg bm7 (R); Height 5 ft. 4 in. (162.56 cm) (R); Pain 0/10; 17:25 BP 95 / 60; Pulse 73; Resp 16; Pulse Ox 99% ; bp 18:22 BP 102 / 61; Pulse 66; Resp 15; Pulse Ox 96% ; bp 15:29 Body Mass Index 29.70 (78.47 kg, 162.56 cm) bm7 MDM: 15:38 Patient medically screened. cp 16:30 Differential diagnosis: cardiac arrhythmia, CVA, generalized weakness, GI bleed, cp hypovolemia, idiopathic dizziness, sepsis. 19:00 Data reviewed: vital signs, nurses notes, lab test result(s), EKG, radiologic studies, cp plain films. 19:00 Test interpretation: by ED physician or midlevel provider: ECG, plain radiologic cp studies. Response to treatment: the patient's symptoms have markedly improved after treatment. ED course: VSS. Patient reports symptoms improved after IV fluids. Will discharge to home for continued monitoring. 04/10 15:53 Order name: Basic Metabolic Panel; Complete Time: 17:19 cp 04/10 17:19 Interpretation: Normal except: NA 135; GLUC 116; BUN 25; CRE 1.50; GFR 38. cp 04/10 15:53 Order name: CBC with Diff; Complete Time: 17:19 cp 04/10 18:21 Interpretation: Normal except: MPV 6.6; MN% 14.8. cp 04/10 15:53 Order name: LFT's; Complete Time: 17:19 cp 04/10 15:53 Order name: Magnesium; Complete Time: 17:19 cp 04/10 15:53 Order name: NT PRO-BNP; Complete Time: 17:19 cp 04/10 15:53 Order name: PT-INR; Complete Time: 17:19 cp 04/10 15:53 Order name: Troponin HS; Complete Time: 17:19 cp 04/10 15:53 Order name: XRAY Chest (1 view); Complete Time: 17:19 cp 04/10 15:53 Order name: EKG; Complete Time: 15:54 cp 04/10 16:18 Order name: COVID-19 SARS RT PCR (Document "Date of Onset" if Symptomatic); Complete cp Time: 18:21 04/10 18:21 Interpretation: Reviewed. 04/10 16:18 Order name: Influenza Screen (a \\T\\ B); Complete Time: 18:21 04/10 16:19 Order name: Urine Microscopic Only; Complete Time: 18:23 04/10 18:23 Interpretation: Reviewed. 04/10 17:58 Order name: Urine Dipstick-Ancillary; Complete Time: 18:21 EDMS 04/10 15:53 Order name: Cardiac monitoring; Complete Time: 16:55 04/10 15:53 Order name: EKG - Nurse/Tech; Complete Time: 16:55 04/10 15:53 Order name: IV Saline Lock; Complete Time: 16:24 04/10 15:53 Order name: Labs collected and sent; Complete Time: 16:24 04/10 15:53 Order name: O2 Per Protocol; Complete Time: 16:24 04/10 15:53 Order name: O2 Sat Monitoring; Complete Time: 16:24 04/10 15:53 Order name: Urine Dipstick-Ancillary (obtain specimen); Complete Time: 18:20 cp EC:55 Rate is 67 beats/min. Rhythm is regular. TN interval is normal. QRS interval is normal. cp QT interval is normal. T waves are Inverted in lead aVR. Interpreted by me. Reviewed by me. Administered Medications: 16:30 Drug: NS 0.9% 1000 ml Route: IV; Rate: 500 ml/hr; Site: right forearm; bp 19:13 Follow up: IV Status: Completed infusion; IV Intake: 1000ml bp Disposition Summary: 04/10/22 19:00 Discharge Ordered Location: Home cp Problem: new cp Symptoms: have improved cp Condition: Stable cp Diagnosis - Volume depletion, unspecified cp Followup: cp - With: Private Physician - When: 1 - 2 days - Reason: Worsening of condition Discharge Instructions: - Discharge Summary Sheet cp - Dehydration, Adult cp Forms: - Medication Reconciliation Form cp - Thank You Letter cp - Antibiotic Education cp - Prescription Opioid Use cp Signatures: Dispatcher [employer] EDOR Zheng Rowell PA PA cp Virgil Santoyo RN RN bp Liana Hillman, RN RN bm7 Corrections: (The following items were deleted from the chart) 16:24 15:53 Urine Test ordered. cp bp 07/29 17:41 07/28 16:00 Context: cp cp
--- NOTE | 2022-04-10 19:01 | ER ---
Nurse's Notes [facility] Name: Herlinda Cobos Age: 67 yrs Sex: Female : 1955 Arrival Date: 04/10/2022 Time: 15:18 Bed 15 Private MD: Toñito Whitfield C Diagnosis: Volume depletion, unspecified Presentation: 04/10 15:30 Chief complaint: Patient states: I got a smoothie from [employer] and as soon as I bm7 started drinking it I started having "bowel problems" I felt like I was going to have diarrhea, I got sweaty, and I felt dizzy. I am not sure if it is the artificial sweetener in the smoothing or not. My checked my blood pressure at home and it was low so I decided to come in and see what was going on with my bowels. Coronavirus screen: Vaccine status: Patient reports receiving the 2nd dose of the covid vaccine. Patient reports receiving the 1st dose of the Covid vaccine. Ebola Screen: No symptoms or risks identified at this time. Initial Sepsis Screen: Does the patient meet any 2 criteria? No. Patient's initial sepsis screen is negative. Does the patient have a suspected source of infection? No. Patient's initial sepsis screen is negative. Risk Assessment: Do you want to hurt yourself or someone else? Patient reports no desire to harm self or others. Onset of symptoms was April 10, 2022 at 14:00. Care prior to arrival: None. 15:30 Method Of Arrival: Wheelchair bm7 15:30 Acuity: JORGE 3 bm7 Triage Assessment: 15:32 General: Appears in no apparent distress. comfortable, well groomed, well developed, bm7 Behavior is calm, cooperative. Pain: Denies pain. EENT: No deficits noted. No signs and/or symptoms were reported regarding the EENT system. Neuro: Level of Consciousness is awake, alert, obeys commands, Oriented to person, place, time, situation, Old Coin Dealer are equal bilaterally Moves all extremities. Gait is steady, Speech is slurred, Facial symmetry appears normal, Reports dizziness. Cardiovascular: No deficits noted. Reports Denies chest pain, shortness of breath. Respiratory: No deficits noted. GI: Abdomen is round non-distended, Bowel sounds present X 4 quads. Reports cramping. : No deficits noted. No signs and/or symptoms were reported regarding the genitourinary system. Derm: No deficits noted. No signs and/or symptoms reported regarding the dermatologic system. Skin is intact, is healthy with good turgor, Skin is dry, Skin is pink, warm \\T\\ dry. Musculoskeletal: No deficits noted. No signs and/or symptoms reported regarding the musculoskeletal system. Historical: - Allergies: 15:32 PENICILLINS; bm7 15:32 Sulfa (Sulfonamide Antibiotics); 7 - Home Meds: 15:32 Advair Diskus Inhl [Active]; amlodipine oral [Active]; atorvastatin Oral [Active]; bm7 Prozac Oral [Active]; carvedilol Oral [Active]; topiramate Oral [Active]; - PMHx: 15:32 Asthma; Hypertension; Hyperlipidemia; bm7 - Immunization history:: Adult Immunizations up to date. - Social history:: Smoking status: Patient reports the use of cigarette tobacco products, Patient/guardian denies using tobacco products. Screenin:30 Abuse screen: Denies threats or abuse. Denies injuries from another. Nutritional bp screening: No deficits noted. Tuberculosis screening: No symptoms or risk factors identified. Fall Risk None identified. Assessment: 15:30 General: SEE TRIAGE NOTE. bp 17:25 Reassessment: No changes from previously documented assessment. Patient and/or family bp updated on plan of care and expected duration. Pain level reassessed. 18:22 Reassessment: No changes from previously documented assessment. Patient and/or family bp updated on plan of care and expected duration. Pain level reassessed. 19:12 Reassessment: PT D/C HOME AMBULATORY WITH FAMILY, DX WITH VOLUME DEPLETION. bp Vital Signs: 15:29 BP 90 / 60; Pulse 70; Resp 16; Temp 97.7(TE); Pulse Ox 100% on R/A; Weight 78.47 kg 7 (R); Height 5 ft. 4 in. (162.56 cm) (R); Pain 0/10; 17:25 BP 95 / 60; Pulse 73; Resp 16; Pulse Ox 99% ; bp 18:22 BP 102 / 61; Pulse 66; Resp 15; Pulse Ox 96% ; bp 15:29 Body Mass Index 29.70 (78.47 kg, 162.56 cm) bm7 ED Course: 15:18 Patient arrived in ED. as 15:19 Mani Whitfield MD is Private Physician. as 15:19 Toñito Whitfield MD is Private Physician. as 15:29 Arm band placed on left wrist. bm7 15:32 Triage completed. bm7 15:35 Zheng Rowell PA is PHCP. cp 15:35 Zheng Rodgers MD is Attending Physician. cp 15:39 Virgil Santoyo, RN is Primary Nurse. bp 16:29 XRAY Chest (1 view) In Process Unspecified. EDMS 16:30 Patient has correct armband on for positive identification. Bed in low position. Call bp light in reach. Side rails up X2. Adult w/ patient. 16:30 Inserted saline lock: 22 gauge in right forearm, using aseptic technique. Blood bp collected. 19:12 No provider procedures requiring assistance completed. IV discontinued, intact, bp bleeding controlled, No redness/swelling at site. Pressure dressing applied. Administered Medications: 16:30 Drug: NS 0.9% 1000 ml Route: IV; Rate: 500 ml/hr; Site: right forearm; bp 19:13 Follow up: IV Status: Completed infusion; IV Intake: 1000ml bp Medication: 19:12 VIS not applicable for this client. bp Intake: 19:13 IV: 1000ml; Total: 1000ml. bp Outcome: 19:00 Discharge ordered by . cp 19:12 Discharged to home ambulatory, with family. bp 19:12 Condition: stable 19:12 Discharge instructions given to patient, Instructed on discharge instructions, follow up and referral plans. Demonstrated understanding of instructions, follow-up care. 19:13 Patient left the ED. bp Signatures: Dispatcher [employer] EDMT Caitlin Lau as Zheng Rowell PA PA cp Virgil Santoyo, RN RN bp Liana Hillman, RN RN bm7
[2022-04-10 19:19] VITALS: TEMP 97.7
[2022-04-10 19:25] VITALS: BP 102/61; O2SAT 96
--- NOTE | 2022-04-11 15:20 | EKG ---
Test Date: 2022-04-10 Test Time: 16:47:55 Strategic Marketing Leader: MITCH MEASUREMENT RESULTS: Intervals: Rate: 67 [place]: 164 QRSD: 78 QT: 424 QTc: 448 [place]: P: 52 [place]: 164 QRS: 64 T: 65 INTERPRETIVE STATEMENTS: Normal sinus rhythm Cannot rule out Anterior infarct, age undetermined Abnormal ECG Compared to ECG 06/14/2020 21:26:57 Myocardial infarct finding now present Electronically Signed On 04-11-22 15:19:10 CDT by Lui Cooley
== END 2022-04-10 19:13 | disposition home or self-care (01) ==
LOC: ER 15:15
DX: E86.9 Volume depletion, unspecified (principal); R19.7 Diarrhea, unspecified; Z20.822 Contact with and (suspected) exposure to COVID-19; I10 Essential (primary) hypertension; E78.5 Hyperlipidemia, unspecified; J45.909 Unspecified asthma, uncomplicated; F17.210 Nicotine dependence, cigarettes, uncomplicated; Z88.0 Allergy status to penicillin; Z88.2 Allergy status to sulfonamides
CPT/HCPCS: 96361; 93005; 85025; 80048; 36415; 83735; 85610; 80076; 84484; 83880; 87804 ×2; 71045; 96360; 99284; U0003; J7030; 81003; 81015